=== PATIENT | female | born 1950 | race African-American/Black ===

== ENCOUNTER 2020-06-20 10:35 | Emergency (ER) | payer MEDICARE, MEDICAID ==
[~2020-06-20] VITALS: Ht 170.2 cm; Wt 80.0 kg
[2020-06-20] MEDS ORDERED: HYDR12.54 PO (10:48)
[2020-06-20 12:30] LABS: BASOPHILS % 0.6 % (0.0-2.0); EOSINOPHILS % 1.8 % (0.0-5.0); HEMOGLOBIN. 13.7 g/dL (12.0-16.0); LYMPHOCYTES % 31.7 % (20.0-50.0); MEAN CORPUSCULAR HEMOGLOBIN 27.9 pg (28.0-32.0); MEAN CORPUSCULAR VOLUME 85.1 fL (81.0-99.0); MEAN PLATELET VOLUME 7.9 fl (7.4-10.4); NEUTROPHILS % 55.9 % (40.0-76.0); PLATELET 122 x1000/uL (130-400); RED BLOOD CELL COUNT 4.93 mill/uL (4.2-5.4); RED CELL DISTRIBUTION WIDTH 14.3 % (11.6-14.6)
[2020-06-20 12:38] LABS: CHLORIDE 107 mEq/L (98-107)
[2020-06-20 12:48] LABS: B-HCG QUANTITATIVE 3 mIU/mL (<3)
[2020-06-20 13:32] VITALS: BP 143/79
[2020-06-20 13:58] LABS: CLARITY URINE CLOUDY (CLEAR); COLOR URINE DARK YELLOW (YELLOW); KETONES URINE NEGATIVE (NEGATIVE); LEUKOCYTE ESTERASE URINE 2+ (NEGATIVE); NITRITE URINE NEGATIVE (NEGATIVE); OCCULT BLOOD URINE 3+ (NEGATIVE); PROTEIN URINE 1+ (NEGATIVE); SPECIFIC GRAVITY URINE 1.029 (1.005-1.030)
[2020-06-20] MEDS ORDERED: NITROFURANTOIN 100MG M/M CAPSULE PO ONE (14:15)
== END 2020-06-20 14:57 | disposition home or self-care (01) ==
LOC: ER 12:10
DX: N93.9 Abnormal uterine and vaginal bleeding, unspecified (principal); I10 Essential (primary) hypertension
CPT/HCPCS: 36415; 76830; 76856; 80053; 81003; 84702; 85025; 86850; 86900; 99284

== ENCOUNTER 2021-09-29 12:49 | Emergency (ER) | payer BC, MEDICAID ==
[~2021-09-29] VITALS: Ht 167.6 cm; Wt 81.0 kg
[~2021-09-29 12:49] MED LIST: HYDR12.54 PO
[2021-09-29 12:58] VITALS: BP 160/89
[2021-09-29] MEDS ORDERED: MELO-104 MT ×3 (13:39→14:12)
== END 2021-09-29 14:35 | disposition home or self-care (01) ==
LOC: ER 12:49
DX: R20.2 Paresthesia of skin (principal); M79.18 Myalgia, other site; E78.00 Pure hypercholesterolemia, unspecified; I10 Essential (primary) hypertension
CPT/HCPCS: 82962; 99283

== ENCOUNTER 2025-04-04 09:55 | Emergency (ER) | payer MEDICARE, MEDICAID ==
[~2025-04-04] VITALS: Ht 170.2 cm; Wt 82.0 kg
[~2025-04-04 09:55] MED LIST changes: +ALBU18HF2 IH; +AMLO10TA80 PO; +ASPI-1497 PO; +ATOR20TA65 MT; +CELE-116 MT; +GABA-1180 MT; +MELO-104 MT; +NITR0.4T49 SL
[2025-04-04 10:02] VITALS: TEMP 36.8; O2SAT 99
[2025-04-04] MEDS: TRANEXAMIC ACID 1,000MG/10ML IV ONE ×2 (12:15→14:30)
[2025-04-04 16:04] LABS: BASOPHILS % 0.4 % (0.0-2.0); EOSINOPHILS % 1.8 % (0.0-5.0); HEMATOCRIT. 39.9 % (36.0-48.0); HEMOGLOBIN. 12.8 g/dL (12.0-16.0); LYMPHOCYTES % 22.8 % (20.0-50.0); MEAN PLATELET VOLUME 7.2 fl (7.4-10.4); MONOCYTES % 9.8 % (2.0-8.0); NEUTROPHILS % 65.2 % (40.0-76.0); PLATELET 242 x1000/uL (130-400); RED BLOOD CELL COUNT 4.90 mill/uL (4.2-5.4); RED CELL DISTRIBUTION WIDTH 15.6 % (11.6-14.6)
[2025-04-04 16:21] LABS: CREATININE 0.6 mg/dL (0.6-1.0); UREA NITROGEN BLOOD 8 mg/dL (9-23)
[2025-04-04 16:39] VITALS: BP 174/99; PULSE 92; RESP 18; O2SAT 100
== END 2025-04-04 16:45 | disposition home or self-care (01) ==
LOC: ER 09:55
DX: K13.79 Other lesions of oral mucosa (principal); E78.00 Pure hypercholesterolemia, unspecified; I10 Essential (primary) hypertension; Z79.82 Long term (current) use of aspirin; Z79.1 Long term (current) use of non-steroidal anti-inflammatories (NSAID); Z79.02 Long term (current) use of antithrombotics/antiplatelets; Z79.899 Other long term (current) drug therapy
CPT/HCPCS: 36415; 80048; 85025; 96374; 96376; 99284